=== PATIENT | male | born 1965 | race Caucasian/White ===

== ENCOUNTER → 2016-10-22 | Outpatient (REF) | payer MEDICARE, MEDICAID | LOC: M SFHCPLAZ 12:56 | PROVIDERS: ATTEND Family Medicine | DX: R73.01 Impaired fasting glucose (principal) | CPT/HCPCS: 83036; G0463 ==

== ENCOUNTER → 2019-01-14 | Outpatient (REF) | payer MEDICARE, MEDICAID | LOC: M SFHCLERA 19:54 | PROVIDERS: ATTEND Physician Assistant | DX: R30.0 Dysuria (principal) | CPT/HCPCS: 81002; 87086; G0463 ==

== ENCOUNTER → 2020-04-25 | Outpatient (CLI) | payer MEDICARE, MEDICAID ==
--- NOTE | 2020-04-25 11:18 | REPPI ---
INDICATION: INJURY, LACERATION RIGHT 5TH DIGIT COMPARISON: None. TECHNIQUE: Four views right 5th digit. FINDINGS: There is no evidence of acute fracture, dislocation, or intrinsic bone disease.No radiopaque foreign body is seen. IMPRESSION: No fracture or dislocation. No radiopaque foreign body is seen. <Electronically signed by Sterling Daly > 04/25/20 2112
== END ==
LOC: M PLAIMG 10:56
PROVIDERS: ATTEND Physician Assistant
DX: S69.91XA Unspecified injury of right wrist, hand and finger(s), initial encounter (principal); M25.641 Stiffness of right hand, not elsewhere classified; L08.9 Local infection of the skin and subcutaneous tissue, unspecified; X58.XXXA Exposure to other specified factors, initial encounter; Y92.9 Unspecified place or not applicable; Y99.9 Unspecified external cause status

== ENCOUNTER → 2021-02-24 | Outpatient (REF) | payer MEDICARE | LOC: M SFHCPLAZ 12:47 | PROVIDERS: ATTEND Physician Assistant | DX: R43.9 Unspecified disturbances of smell and taste (principal) | CPT/HCPCS: 87426; G0463; U0003 ==

== ENCOUNTER → 2021-03-01 | Outpatient (REF) | payer MEDICARE, MEDICAID | LOC: M SFHCPLAZ 12:50 | PROVIDERS: ATTEND Physician Assistant | DX: R05.9 Cough, unspecified (principal) | CPT/HCPCS: 87426; G0463; U0003 ==

== ENCOUNTER → 2021-07-27 | Outpatient (CLI) | payer MEDICARE, MEDICAID | LOC: M LAB 09:44 → M PLALAB 09:44 | PROVIDERS: ATTEND Family Medicine | DX: R73.01 Impaired fasting glucose (principal) ==